=== PATIENT | male | born 2000 | race Caucasian/White ===

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

== ENCOUNTER 2024-03-17 10:15 | Emergency (ER) | payer BC, SELFPAY ==
--- NOTE | 2024-03-17 10:12 | ECG_ITS ---
APPROVED REPORT Exam: Resting ECG HR:115 bpm ECG Measurements Heart Rate 115 AXES PA 134 P 61 QRSd 97 QRS 92 QT 296 T -8 QTc 364 Conclusion SINUS TACHYCARDIA BORDERLINE RIGHT AXIS DEVIATION [QRS AXIS > 90] ABNORMAL QRS-T ANGLE [QRS-T AXIS DIFFERENCE > 60] ABNORMAL ECG T wave inversions in lead III and aVF, no STEMI Electronically signed by : EMELYN BARTLETT, 03/18/2024 02:54:02
[2024-03-17 10:15] VITALS: BP 141/90; PULSE 122; RESP 19; TEMP 36.8; O2SAT 100; BMI 21.7
--- NOTE | 2024-03-17 10:15 | PC.NURSE ---
DR MICHELLE AT BEDSIDE
--- NOTE | 2024-03-17 10:23 | CT_ITS ---
PROCEDURE INFORMATION: Exam: CT Head Without Contrast Exam date and time: 03/17/2024 10:51 AM Age: 23 years old Clinical indication: Other: New onset seizure TECHNIQUE: Imaging protocol: Computed tomography of the head without contrast. Radiation optimization: All CT scans at this facility use at least one of these dose optimization techniques: automated exposure control; mA and/or kV adjustment per patient size (includes targeted exams where dose is matched to clinical indication); or iterative reconstruction. COMPARISON: No relevant prior studies available. FINDINGS: Brain: No hemorrhage. Unremarkable white matter for the patient's age. No mass effect. No evolving territorial infarct. Cerebral ventricles: No ventriculomegaly. Paranasal sinuses: Visualized sinuses are unremarkable. No fluid levels. Mastoid air cells: Visualized mastoid air cells are well aerated. Bones: Unremarkable. No acute fracture. Soft tissues: Unremarkable. IMPRESSION: No acute intracranial abnormality seen.
--- NOTE | 2024-03-17 10:25 | ED_ITS ---
Discharge Plan Disposition Chief Complaint: Seizure Prescriptions Prescriptions: No Action minocycline 100 mg capsule 100 mg PO BID Referrals Follow up/Referrals: Provider,Referral, [Referring] - See instructions Clinical Impressions Clinical Impression: New onset seizure, Sleep deprivation Instructions Patient Instructions: DI for Seizure (Not Epilepsy/Seizure Disorder), DI for Seizure Disorder -- Adult, DI for Seizure Disorder -- Child Print Language Print Language: Albanian Discharge ED Provider: Jeaneth Simental General Adult HPI General Chief complaint: Seizure Stated complaint: seizure Time Seen by Provider: 03/17/24 10:22 History of Present Illness HPI narrative: Patient is a 23-year-old male presenting today after a new onset generalized tonic-clonic seizure. He is accompanied by his mother and family as mother is a medical professional and witnessed the event today. Was in his normal state of health getting ready for anabaptist when all of a sudden he had a generalized tonic-clonic seizure. This lasted about 15 seconds. 15 to 20 minutes of postictal state. No history of any absence seizure's in the past or seizures that he has had in the past his mother does have a history of epilepsy. He has not had head trauma. Does not use any alcohol or any drugs denies any withdrawal. Does stay up very late justin. That has done I will bit more than normal lately. But again has had no history of seizures. He denies any headaches that preceded this or any neurologic complaints and states at the moment that he has no symptoms. He feels back to baseline. Related Data Home Medications ?Medication ?Instructions ?Recorded ?Confirmed minocycline 100 mg capsule 100 mg PO BID 10/02/17 Allergies Allergy/AdvReac Type Severity Reaction Status Date / Time No Known Allergies Allergy Verified 10/02/17 10:20 [facility] Disclaimer: The information contained in this section may have been updated after the patient was seen, as this information can be updated by other users. Social History Smoking Status: Never smoker alcohol intake: never substance use type: denies use current occupational status: other Travel in the last 8 weeks: None Other Medical History Have you received the Flu Vaccine for this season: No Have you received the Pneumonia Vaccine: No ROS Obtained: Yes All systems reviewed & no additional complaints except as documented Physical Exam General General appearance: alert and in no apparent distress Respiratory Respiratory exam: Present normal lung sounds bilaterally Cardiovascular Cardiovascular exam: Present regular rate Neurological Exam Neurological exam: Present alert, oriented X3, CN II-XII intact and normal gait; Absent motor sensory deficit Medical Decision Making Medical Records Screening: Per USPSTF and CDC recommendations, given the prevalence of disease in our region, it is our hospital?s policy to screen for HIV and viral Hepatitis for all patients aged 18 and over and those with ongoing risk factors. Levon Inquiry Pt receiving controlled substance: No Vital Signs: 03/17/24 10:15 03/17/24 10:30 03/17/24 11:00 Temperature 98.3 F Temperature Source Oral Pulse Rate 109 H 99 H Pulse Rate [Right] 122 H Respiratory Rate 19 14 16 Blood Pressure 128/80 120/76 Blood Pressure [Right Arm] 141/90 H Blood Pressure Mean [Right Arm] 107 Blood Pressure Source [Right Arm] Automatic Cuff 02 Sat by Pulse Oximetry 100 100 100 Oxygen Delivery Method Room Air Room Air Room Air 03/17/24 11:30 Temperature Temperature Source Pulse Rate 95 H Pulse Rate [Right] Respiratory Rate 23 Blood Pressure 126/77 Blood Pressure [Right Arm] Blood Pressure Mean [Right Arm] Blood Pressure Source [Right Arm] 02 Sat by Pulse Oximetry 99 Oxygen Delivery Method Lab Data Lab results reviewed: Yes I reviewed the patient's lab results. Lab Results 03/17/24 10:12: WBC 7.2, RBC 5.24, Hgb 15.4, Hct 44.5, MCV 84.9, MCH 29.4, MCHC 34.6, RDW 12.9, Plt Count 290, MPV 9.2, Neut % (Auto) 49.1, Lymph % (Auto) 39.8, [place] % (Auto) 8.2, Eos % (Auto) 1.5, Baso % (Auto) 0.6, Neut # (Auto) 3.5, Lymph # (Auto) 2.9, [place] # (Auto) 0.6, Eos # (Auto) 0.1, Baso # (Auto) 0.0, Sodium 132 L, Potassium 4.4, Chloride 106, Carbon Dioxide 18 L, Anion Gap 12.4, BUN 10, Creatinine 0.90, Estimated GFR 107, Est GFR ( Amer) 129, Glucose 129 H, Calcium 9.0, Total Bilirubin 0.7, AST 28, ALT 25, Alkaline Phosphatase 58, Total Protein 6.2 L, Albumin 3.9, Globulin 2.3, Albumin/Globulin Ratio 1.7 03/17/24 11:15: Urine Opiates Screen Negative, Urine Methadone Screen Negative, Ur Barbituates Screen Negative, Ur Phencyclidine Scrn Negative, Ur Amphetamines Screen Negative, U Benzodiazepines Scrn Negative, Urine Cocaine Screen Negative, U Marijuana (THC) Screen Negative 03/17/24 10:12 03/17/24 10:12 Orders (Tests/Meds): ED MEDICATIONS Discontinued Medications Generic Name Dose Route Start Last Admin Trade Name Merari PRN Reason Stop Dose Admin Sodium Chloride 1,000 mls @ 999 mls/hr 03/17/24 10:30 03/17/24 11:15 Sod Chlor 0.9% 1000ml Bag IV 03/17/24 11:30 999 mls/hr .Q1H1M RON Administration ORDERS Category Date Time Status CT head/brain wo con Stat Cat Scan 03/17/24 10:23 Completed CBC w/Auto Diff [Complete Blood Count Auto Diff] Stat Lab 03/17/24 10:12 Completed CMP [Comprehensive Metabolic Panel] Stat Lab 03/17/24 10:12 Completed HIV Combo Stat Lab 03/17/24 10:12 Received Hep C Ab with Reflex to RNA Stat Lab 03/17/24 10:12 Received UDS [Drug Screen,Urine] Stat Lab 03/17/24 11:15 Completed ECG Data Tracing #1: I reviewed this ECG and interpreted as documented below: Ventricular rate of 115 sinus tachycardia there is S1Q3T3 no acute ischemic changes noted no other conduction abnormalities Medical Decision Narrative: 23-year-old with above history and physical GCS of 15 normal neurologic exam. History is consistent with new onset generalized tonic-clonic seizure differential includes sleep deprivation, new onset epilepsy, infection, electrolyte abnormality, space-occupying lesion/brain tumor etc. Will get a noncontrasted CT scan basic blood work including UDS and administer IV fluids. Most likely in the situation we will not have an answer and given the fact that he has not had preceding seizures up to this point will not make a diagnosis of epilepsy and not initiate antiepileptic medications unless he has a recurrence. CT scan performed which I personally interpreted which shows no intracranial abnormalities radiology read consistent with this as well labs otherwise unremarkable patient remained stable. He has been given seizure precautions with the driving for 90 days and has been told that statistically first-time seizure he is not likely to have another seizure in his life and that if he has a cycle and to return for antiepileptic medications and likely neurologic follow-up and workup. Critical Care Critical Care Time Critical Care Time: No
[2024-03-17 10:30] VITALS: BP 128/80; PULSE 109; RESP 14; O2SAT 100
[2024-03-17 10:31] LABS: Basophils % 0.6 % (0.1-2.0); Eosinophils # 0.1 K/mm3 (0.0-0.4); Eosinophils % 1.5 % (0.1-12.0); Hematocrit 44.5 % (42.0-52.0); Hemoglobin 15.4 g/dL (14.1-18.0); Lymphocytes # 2.9 K/mm3 (0.7-4.5); Lymphocytes % 39.8 % (10-50); Mean Corpuscular HGB Conc 34.6 g/dL (31.8-35.4); Mean Corpuscular Hemoglobin 29.4 pg (27.0-31.2); Mean Corpuscular Volume 84.9 fl (80-94); Mean Platelet Volume 9.2 fl (7.4-10.4); Monocytes # 0.6 K/mm3 (0.1-1.0); Monocytes % 8.2 % (1.7-9.3); Neutrophils # 3.5 K/mm3 (1.8-7.8); Neutrophils % 49.1 % (37.0-80.0); Platelet Count 290 K/mm3 (142-424); Red Blood Count 5.24 M/mm3 (4.60-6.20); Red Cell Distribution Width 12.9 % (11.5-17.5); White Blood Count 7.2 K/mm3 (4.8-10.8)
[2024-03-17 10:33] LABS: Albumin Level 3.9 g/dl (3.5-5.0); Chloride 106 mmol/L (98-107); Potassium 4.4 mmoL/L (3.5-5.1); Sodium 132 mmol/L (136-145)
[2024-03-17 10:36] LABS: Alanine Aminotransferase 25 U/L (12-78); Albumin/Globulin Ratio 1.7 (1.1-1.8); Alkaline Phosphatase 58 U/L (38-126); Anion Gap 12.4 mEq/L (5-15); Aspartate Amino Transferase 28 U/L (17-59); Bilirubin,Total 0.7 mg/dl (0.2-1.3); Blood Urea Nitrogen 10 mg/dl (9-20); Carbon Dioxide 18 mmol/L (22.0-30.0); Estimated Glomerular Filt Rate 107 ml/min (>60); GFR (African American) 129 ML/MIN (>60); Globulin 2.3 g/dL (1.3-3.2); Glucose 129 mg/dl (74-100); Total Protein,Serum 6.2 g/dl (6.3-8.2)
--- NOTE | 2024-03-17 10:45 | PC.NURSE ---
Patient gone to CT
--- NOTE | 2024-03-17 10:54 | PC.NURSE ---
PT RETURNED FROM CT
--- NOTE | 2024-03-17 10:54 | PC.NURSE ---
Patient back from CT
[2024-03-17 11:00] VITALS: BP 120/76; PULSE 99; RESP 16; O2SAT 100
[2024-03-17] MEDS: 0.9 % SODIUM CHLORIDE 1000ML 1,000 ML 999 ML IV (11:15)
[2024-03-17 11:30] VITALS: BP 126/77; PULSE 95; RESP 23; O2SAT 99
[2024-03-17 11:33] LABS: Barbiturates Screen,Urine Negative ng/ml (<200)
[2024-03-17 11:34] LABS: Amphetamine/Metha Screen,Urine Negative ng/ml (<1000)
[2024-03-17 11:35] LABS: Cannabinoid Screen,Urine Negative ng/ml (<50)
[2024-03-17 11:36] LABS: Cocaine Screen,Urine Negative ng/ml (<300); Methadone Screen,Urine Negative ng/ml (<300)
[2024-03-17 11:37] LABS: Opiate Screen,Urine Negative ng/ml (<300)
[2024-03-17 11:38] LABS: Phencyclidine Screen,Urine Negative ng/ml (<25)
[2024-03-17 11:46] LABS: Benzodiazepines Screen,Urine Negative ng/ml (<200)
[2024-03-17 11:53] VITALS: BP 126/77; PULSE 90; RESP 17; TEMP 36.8; O2SAT 98
--- NOTE | 2024-03-17 11:53 | PC.NURSE ---
DR MICHELLE AT BEDSIDE TO REEVALUATE PT
[2024-03-17 12:39] LABS: HIV Combo NEGATIVE (Negative)
[2024-03-19 05:33] LABS: HCV Ab Non Reactive (Non Reactive)
== END 2024-03-17 11:57 | disposition home or self-care (01) ==
PROVIDERS: Emergency Provider Student in an Organized Health Care Education/Training Program; PCP Internal Medicine
DX: R56.9 Unspecified convulsions (principal)
CPT/HCPCS: 70450; 80053; 80307; 85025; 86803; 87389; 93005; 96360; 99285; J7030

== ENCOUNTER 2024-03-18 15:07 | Outpatient (CLI) | payer BC, SELFPAY ==
[2024-03-18 16:16] LABS: Creatine Kinase 346 U/L (55-170)
== END 2024-03-18 23:59 | disposition home or self-care (01) ==
LOC: LAB 15:09
PROVIDERS: PCP Internal Medicine; Visit Provider Specialist
DX: R42 Dizziness and giddiness (principal); R56.9 Unspecified convulsions; R94.31 Abnormal electrocardiogram [ECG] [EKG]; Z84.89 Family history of other specified conditions; Z82.49 Family history of ischemic heart disease and other diseases of the circulatory system
CPT/HCPCS: 36415; 82085; 82550; 93225; 93227

== ENCOUNTER 2024-03-22 09:21 | Outpatient (CLI) | payer BC, SELFPAY ==
--- NOTE | 2024-03-22 09:26 | CA_ITS ---
APPROVED REPORT EXAM: Comprehensive 2D, Doppler, and color-flow Echocardiogram Self Propelled Dredge Operator: SIMONA Maldonado, RVS Ht: 6 ft 0 in Wt: 167lbs BSA: 1.97 BP: 130/73 mmHg Indications: Abn ekg, Seizure, syncope 2D Dimensions LA Volume 43.20 mL LA Volume Index 21.93 mL/m2 (M/F) 16-34 M-Mode Dimensions RVDd 2.72 cm (0.9-2.6) LA Diam 2.76 cm (1.9-4.0) LVDd 4.86 cm (3.5-5.7) LVDs 3.29 cm (3.5-5.7) IVSd 0.74 cm (0.6-1.1) PWd 0.77 cm (0.6-1.1) EF (Teich) 60.40% EPSs 0.57 cm FS 32.30% EDV (Teich) 110.70 mL TAPSE 2.22 (<1.7) ESV (Teich) 43.80 mL LV Diastology E Decel Time 160 (160-240 msec) E/A Ratio 2.49 MED A' 9.50 cm/s LAT A' 13.70 cm/s Aortic Valve AoV Peak Nasim. 91.0 (50-130 cm/s) AO Peak GR. 3.30 mmHg AO Mean GR. 1.70 (<5 mmHg) AO VTI 18.2 (18-25 cm) Mitral Valve MV A Velocity 37.0 (40-130 cm/s) E/A Ratio 2.49 Left Ventricle The left ventricle is normal size. The left ventricular systolic function is normal. The left ventricular ejection fraction is within the normal range. There is normal left ventricular wall thickness. There is normal LV segmental wall motion. The left ventricular diastolic function is normal. LVEF is 55%. Right Ventricle The right ventricle is normal size. The right ventricular systolic function is normal. Atria The left atrium size is normal. The right atrium size is normal. There is no Doppler evidence of interatrial shunt. Aortic Valve The aortic valve is normal in structure. The aortic valve is trileaflet. There is no aortic valvular stenosis. No aortic regurgitation is present. Mitral Valve The mitral valve is normal in structure. No evidence of mitral valve stenosis. There is no mitral valve regurgitation noted. Tricuspid Valve Tricuspid valve is grossly normal in structure and function. Trace tricuspid regurgitation. There is insufficient TR jet to estimate RVSP. Pulmonic Valve The pulmonary valve is normal in structure. Trace pulmonic regurgitation. Great Vessels The aortic root is normal in size. The ascending aorta is normal in size. IVC is normal in size and collapses >50% with inspiration. Pericardium There is no pericardial effusion. Other Information Study Quality: Adequate Conclusion Normal biventricular systolic function. No significant valvular stenosis or regurgitation. Electronically signed by : Zhane Marrero MD 04/01/2024 13:38:48
== END 2024-03-22 23:59 | disposition home or self-care (01) ==
PROVIDERS: PCP Internal Medicine; Visit Provider Nurse Practitioner Family
DX: R42 Dizziness and giddiness (principal); R00.0 Tachycardia, unspecified; R94.31 Abnormal electrocardiogram [ECG] [EKG]; R55 Syncope and collapse
CPT/HCPCS: 93306

== ENCOUNTER 2024-04-29 12:43 | Outpatient (CLI) | payer BC, SELFPAY ==
[2024-04-30 15:36] LABS: Levetiracetam (Keppra) 7.1 ug/mL (10.0-40.0)
== END 2024-04-29 23:59 | disposition home or self-care (01) ==
LOC: LAB 12:44
PROVIDERS: PCP Internal Medicine; Visit Provider Specialist
DX: R56.9 Unspecified convulsions (principal)
CPT/HCPCS: 36415; 80177

== ENCOUNTER 2024-05-20 10:56 | Outpatient (CLI) | payer BC, SELFPAY ==
[2024-05-22 15:10] LABS: Levetiracetam (Keppra) 10.8 ug/mL (10.0-40.0)
== END 2024-05-20 23:59 | disposition home or self-care (01) ==
LOC: LAB 10:56
PROVIDERS: PCP Internal Medicine; Visit Provider Specialist
DX: R56.9 Unspecified convulsions (principal); Z79.899 Other long term (current) drug therapy
CPT/HCPCS: 36415; 80177